=== PATIENT | female | born 1945 | race Caucasian/White ===

== ENCOUNTER 2018-05-16 08:27 | Outpatient (CLI) | payer OTHER | END 2018-05-16 08:36 | disposition home or self-care (01) | LOC: RAD 08:27 | DX: M48.07 Spinal stenosis, lumbosacral region (principal); R07.1 Chest pain on breathing ==

== ENCOUNTER 2018-05-16 09:26 | Inpatient (IN) | payer OTHER ==
[~2018-05-16] VITALS: Ht 152.4 cm; Wt 45.4 kg
[2018-05-23] MEDS ORDERED: SYNTHROID50 MCG PO (12:34)
[2018-06-06] MEDS ORDERED: GABAPENTIN800 MG PO (09:25)
[2018-06-06] MEDS ORDERED: DOCUSATE SODIU100 MG PO (09:25)
[2018-06-06] MEDS ORDERED: AMOX-CLAV 875-1 EACH PO (09:26)
[2018-06-06] MEDS ORDERED: CLONAZEPAM1 MG PO (09:26)
[2018-06-06] MEDS ORDERED: PERCOCET 5-3251 EACH PO (09:26)
== END 2018-06-06 12:56 | disposition home or self-care (01) | DRG 455 ==
LOC: O/R 06-05 04:48 → SURG 06-05 04:48 → RECOVERY 06-05 08:30 → SURG 06-05 19:41
PROVIDERS: Orthopaedic Surgery Orthopaedic Surgery of the Spine
PROC: 0SG0071 Fusion of Lumbar Vertebral Joint with Autologous Tissue Substitute, Posterior Approach, Posterior Column, Open Approach (ICD-10-PCS; 2018-06-05)
PROC: 0ST20ZZ Resection of Lumbar Vertebral Disc, Open Approach (ICD-10-PCS; 2018-06-05)
PROC: 0SG00AJ Fusion of Lumbar Vertebral Joint with Interbody Fusion Device, Posterior Approach, Anterior Column, Open Approach (ICD-10-PCS; 2018-06-05)
PROC: 07DS3ZZ Extraction of Vertebral Bone Marrow, Percutaneous Approach (ICD-10-PCS; 2018-06-05)
PROC: 0SG00A0 Fusion of Lumbar Vertebral Joint with Interbody Fusion Device, Anterior Approach, Anterior Column, Open Approach (ICD-10-PCS; principal; 2018-06-05 14:00)
DX: M47.26 Other spondylosis with radiculopathy, lumbar region (principal); M48.061 Spinal stenosis, lumbar region without neurogenic claudication; M51.16 Intervertebral disc disorders with radiculopathy, lumbar region; E03.8 Other specified hypothyroidism; L89.151 Pressure ulcer of sacral region, stage 1

== ENCOUNTER 2018-05-23 10:52 | Outpatient (CLI) | payer OTHER ==
[2018-05-23] MEDS ORDERED: SYNTHROID50 MCG PO (12:34)
== END 2018-05-23 11:00 | disposition home or self-care (01) ==
LOC: MRI 10:52
DX: M48.07 Spinal stenosis, lumbosacral region (principal)
CPT/HCPCS: 72148